=== PATIENT | female | born 1975 | race Caucasian/White ===

== ENCOUNTER 2017-08-30 13:17 | Emergency (ER) | payer OTHER ==
[2017-08-30] MEDS ORDERED: ONDANSETRON 4 MG/2 ML VIAL IVP STA ×2 (13:42→16:22)
[2017-08-30] MEDS ORDERED: SODIUM CHLORIDE 0.9% 1,000 ML IV STA (13:42)
--- NOTE | 2017-08-30 13:49 | ED ---
Nausea/Vomiting/Diarrhea HPI - General Chief complaint: Nausea/Vomiting/Diarrhea Stated complaint: vomiting Time Seen by Provider: 08/30/17 13:35 Source: patient Mode of arrival: wheelchair Limitations: no limitations - History of Present Illness Initial comments: Patient presents with sudden onset of vomiting for the past 2 hours. Patient denies any recent illness or triggers for vomiting. Denies suspicious food intake. Patient states she has not eaten any food today. Patient states she had a similar episode approximately 6 years ago when she found out she was . Patient states she is currently on her period, which has been cloth bleaching range tender than normal. Patient admits to cramping epigastric pain. Patient denies any pain in the lower abdomen or pelvis. Patient denies diarrhea constipation. Patient denies urinary symptoms. Patient denies vaginal discharge. Denies fevers, chills. Patient states since vomiting started she has felt a "tightening" sensation in the muscles of her legs and arms. MD complaint: nausea, vomiting, abdominal pain Onset/Timin -: hour(s) Associated Abdominal Pain: Yes Location: epigastric Radiation: none Severity scale (1-10): 3 Quality: cramping - Related Data Home Medications Medication Instructions Recorded Confirmed Sertraline [Zoloft] 50 mg PO DAILY 09/29/15 08/30/17 cloNIDine HCL [Catapres] 0.2 mg PO DAILY 09/29/15 08/30/17 Buprenorphine HCl/Naloxone HCl 1 film SUBLINGUAL BID 08/30/17 08/30/17 [Suboxone 2 mg-0.5 mg Sl Film] Ferrous Sulfate [Feosol] 325 mg PO DAILY 08/30/17 08/30/17 Multivitamins, Thera [Multivitamin 1 tab PO DAILY 08/30/17 08/30/17 (formulary)] Previous Rx's Medication Instructions Recorded Ondansetron Odt [Zofran Odt] 4 mg PO Q8HR PRN #10 tab 08/30/17 Allergies Allergy/AdvReac Type Severity Reaction Status Date / Time sulfamethoxazole Allergy Unknown Verified 08/30/17 14:02 [From Bactrim] trimethoprim [From Bactrim] Allergy Unknown Verified 08/30/17 14:02 Review of Systems ROS Statement: Those systems with pertinent positive or pertinent negative responses have been documented in the HPI. ROS Other: All systems not noted in ROS Statement are negative. Constitutional: Denies: fever, chills, weakness Eyes: Denies: vision change ENT: Denies: throat pain, congestion Respiratory: Denies: cough Cardiovascular: Denies: chest pain Endocrine: Reports: fatigue Gastrointestinal: Reports: abdominal pain, nausea, vomiting. Denies: diarrhea, constipation, hematemesis, melena, hematochezia Genitourinary: Denies: urgency, dysuria, frequency, hematuria Musculoskeletal: Denies: back pain Skin: Denies: rash, change in color Neurological: Denies: headache, weakness, numbness, paresthesias, vertigo Past Medical History Past Medical History: No Reported History History of Any Multi-Drug Resistant Organisms: MRSA Date of last positivie culture/infection: 01/18/2012 MDRO Source:: buttocks Past Surgical History: No Surgical Hx Reported Past Psychological History: Depression Smoking Status: Never smoker Past Alcohol Use History: None Reported Past Drug Use History: None Reported General Exam - General Exam Comments Initial Comments: Laying on left side on bed, retching without any vomiting. Appears in moderate distress. Limitations: no limitations General appearance: alert, anxious Head exam: Present: atraumatic, normocephalic Eye exam: Present: normal appearance, PERRL ENT exam: Present: normal oropharynx, mucous membranes moist Respiratory exam: Present: normal lung sounds bilaterally. Absent: respiratory distress, wheezes, rales, stridor Cardiovascular Exam: Present: regular rate, normal rhythm GI/Abdominal exam: Present: soft, other (Abdomen is soft nontender nondistended) . Absent: distended, tenderness, guarding, rebound, rigid Extremities exam: Present: normal inspection Neurological exam: Present: alert, oriented X3 Psychiatric exam: Present: anxious Skin exam: Present: warm, dry, intact, normal color. Absent: rash Course Vital Signs 08/30/17 08/30/17 08/30/17 13:27 17:07 18:59 Temperature 97.0 F L 98.9 F Pulse Rate 70 68 82 Respiratory 18 18 16 Rate Blood Pressure 156/86 164/85 139/73 O2 Sat by Pulse 99 100 97 Oximetry Medical Decision Making - Medical Decision Making Patient only pain complaint is mild cramping epigastric pain, abdomen is nontender. Patient admits to being on her period, however denies lower abdominal pain or abdominal cramping. We'll check urine test. IV fluids and antiemetics ordered. test negative. Patient states continued nausea after first dose of medications, Reglan and Benadryl given. Ultrasound of the gallbladder and pelvis negative. Patient states she still has pain, morphine given. Computed tomography scan ordered. No acute process on computed tomography scan. Patient reevaluated, updated with poor results. Patient sitting up on the bed smiling. No acute distress. States all symptoms resolved at this time. States she is feeling hungry and wanted to go home to eat. Sitting up on bed playing with her son. Patient well appearing. We'll discharge home. Patient agrees to follow up primary care physician. Return to ER for new or worsening symptoms. Patient understands and agrees. Prescription Zofran given. - Lab Data Result diagrams: 08/30/17 13:47 08/30/17 13:47 Lab Results 08/30/17 08/30/17 08/30/17 Range/Units 13:47 13:47 13:55 WBC 15.0 H (3.8-10.6) k/uL RBC 5.53 H (3.80-5.40) m/uL Hgb 16.6 H (11.4-16.0) gm/dL Hct 50.5 H (34.0-46.0) % MCV 91.4 (80.0-100.0) fL MCH 30.0 (25.0-35.0) pg MCHC 32.8 (31.0-37.0) g/dL RDW 12.1 (11.5-15.5) % Plt Count 354 (150-450) k/uL Neutrophils % 87 % Lymphocytes % 8 % Monocytes % 4 % Eosinophils % 0 % Basophils % 0 % Neutrophils # 13.1 H (1.3-7.7) k/uL Lymphocytes # 1.3 (1.0-4.8) k/uL Monocytes # 0.5 (0-1.0) k/uL Eosinophils # 0.0 (0-0.7) k/uL Basophils # 0.0 (0-0.2) k/uL Sodium 144 (137-145) mmol/L Potassium 4.2 (3.5-5.1) mmol/L Chloride 106 (98-107) mmol/L Carbon Dioxide 25 (22-30) mmol/L Anion Gap 13 mmol/L BUN 10 (7-17) mg/dL Creatinine 0.60 (0.52-1.04) mg/dL Est GFR (MDRD) Af Amer >60 (>60 ml/min/1.73 sqM) Est GFR (MDRD) Non-Af >60 (>60 ml/min/1.73 sqM) Glucose 161 H (74-99) mg/dL Calcium 9.8 (8.4-10.2) mg/dL Total Bilirubin 0.5 (0.2-1.3) mg/dL Conjugated Bilirubin 0.0 (0.0-0.3) mg/dL Unconjugated Bilirubin 0.2 (0.0-1.1) mg/dL Delta Bilirubin 0.3 H (0.0-0.2) mg/dL AST 22 (14-36) U/L ALT 30 (9-52) U/L Alkaline Phosphatase 57 (38-126) U/L Total Protein 6.9 (6.3-8.2) g/dL Albumin 4.3 (3.5-5.0) g/dL Lipase 79 (23-300) U/L Urine Color Yellow Urine Appearance Clear (Clear) Urine pH 8.5 H (5.0-8.0) Ur Specific Frost 1.012 (1.001-1.035) Urine Protein 1+ H (Negative) Urine Glucose (UA) Negative (Negative) Urine Ketones 2+ H (Negative) Urine Blood Moderate H (Negative) Urine Nitrite Negative (Negative) Urine Bilirubin Negative (Negative) Urine Urobilinogen <2.0 (<2.0) mg/dL Ur Leukocyte Esterase Small H (Negative) Urine RBC 167 H (0-5) /hpf Urine WBC 5 (0-5) /hpf Ur Squamous Epith Cells 2 (0-4) /hpf Urine Mucus Rare H (None) /hpf Urine HCG, Qual (Not Detectd) 08/30/17 Range/Units 13:55 WBC (3.8-10.6) k/uL RBC (3.80-5.40) m/uL Hgb (11.4-16.0) gm/dL Hct (34.0-46.0) % MCV (80.0-100.0) fL MCH (25.0-35.0) pg MCHC (31.0-37.0) g/dL RDW (11.5-15.5) % Plt Count (150-450) k/uL Neutrophils % % Lymphocytes % % Monocytes % % Eosinophils % % Basophils % % Neutrophils # (1.3-7.7) k/uL Lymphocytes # (1.0-4.8) k/uL Monocytes # (0-1.0) k/uL Eosinophils # (0-0.7) k/uL Basophils # (0-0.2) k/uL Sodium (137-145) mmol/L Potassium (3.5-5.1) mmol/L Chloride (98-107) mmol/L Carbon Dioxide (22-30) mmol/L Anion Gap mmol/L BUN (7-17) mg/dL Creatinine (0.52-1.04) mg/dL Est GFR (MDRD) Af Amer (>60 ml/min/1.73 sqM) Est GFR (MDRD) Non-Af (>60 ml/min/1.73 sqM) Glucose (74-99) mg/dL Calcium (8.4-10.2) mg/dL Total Bilirubin (0.2-1.3) mg/dL Conjugated Bilirubin (0.0-0.3) mg/dL Unconjugated Bilirubin (0.0-1.1) mg/dL Delta Bilirubin (0.0-0.2) mg/dL AST (14-36) U/L ALT (9-52) U/L Alkaline Phosphatase (38-126) U/L Total Protein (6.3-8.2) g/dL Albumin (3.5-5.0) g/dL Lipase (23-300) U/L Urine Color Urine Appearance (Clear) Urine pH (5.0-8.0) Ur Specific Frost (1.001-1.035) Urine Protein (Negative) Urine Glucose (UA) (Negative) Urine Ketones (Negative) Urine Blood (Negative) Urine Nitrite (Negative) Urine Bilirubin (Negative) Urine Urobilinogen (<2.0) mg/dL Ur Leukocyte Esterase (Negative) Urine RBC (0-5) /hpf Urine WBC (0-5) /hpf Ur Squamous Epith Cells (0-4) /hpf Urine Mucus (None) /hpf Urine HCG, Qual Not Detected (Not Detectd) Disposition Clinical Impression: Nausea & vomiting, Abdominal pain Disposition: HOME SELF-CARE Condition: Good Instructions: Abdominal Pain (ED), Acute Nausea and Vomiting (ED) Additional Instructions: Follow-up to her primary care physician in one to 2 days. Return ER if new or worsening symptoms. Including inability to tolerate oral intake. Prescriptions: Ondansetron Odt [Zofran Odt] 4 mg PO Q8HR PRN #10 tab PRN Reason: Nausea Referrals: Patel Dee DO [Primary Care Provider] - 1-2 days
[2017-08-30 14:09] LABS: Mucus,Urine Rare /hpf; RBC,Urine 167 /hpf (0-5); Squamous Epithelial Cell,Urine 2 /hpf (0-4); WBC,Urine 5 /hpf (0-5)
[2017-08-30 14:13] LABS: Appearance,Urine Clear (Clear); Bilirubin,Urine Negative (Negative); Blood,Urine Moderate (Negative); Color,Urine Yellow; Glucose,Urine (UA) Negative (Negative); Leukocyte Esterase,Urine Small (Negative); Nitrite,Urine Negative (Negative); PH, Urine 8.5 (5.0-8.0); Protein,Urine 1+ (Negative); Specific Gravity,Urine 1.012 (1.001-1.035); Urobilinogen,Urine <2.0 mg/dL (<2.0)
[2017-08-30 14:13] LABS: ALT 30 U/L (9-52); AST 22 U/L (14-36); Albumin 4.3 g/dL (3.5-5.0); Alkaline Phosphatase 57 U/L (38-126); Anion Gap 13 mmol/L; Bilirubin, Delta 0.3 mg/dL (0.0-0.2); Bilirubin,Unconjugated 0.2 mg/dL (0.0-1.1); Blood Urea Nitrogen 10 mg/dL (7-17); Calcium 9.8 mg/dL (8.4-10.2); Carbon Dioxide 25 mmol/L (22-30); Chloride 106 mmol/L (98-107); Glucose 161 mg/dL (74-99); Lipase 79 U/L (23-300); Potassium 4.2 mmol/L (3.5-5.1); Sodium 144 mmol/L (137-145); Total Bilirubin 0.5 mg/dL (0.2-1.3); Total Protein 6.9 g/dL (6.3-8.2)
[2017-08-30 14:19] LABS: Ketones,Urine 2+ (Negative)
[2017-08-30] MEDS ORDERED: diphenhydrAMINE 50 MG/ML 1 ML VIAL IVP STA (14:42)
[2017-08-30] MEDS ORDERED: METOCLOPRAMIDE 5 MG/ML 2 ML VIAL IVP STA (14:42)
[2017-08-30] MEDS ORDERED: KETOROLAC 30 MG/ML 1 ML VIAL IVP STA (14:49)
[2017-08-30 15:05] LABS: Basophils % (A) 0 %; Eosinophils % (A) 0 %; HCT 50.5 % (34.0-46.0); HGB 16.6 gm/dL (11.4-16.0); Lymphocytes # (A) 1.3 k/uL (1.0-4.8); Lymphocytes % (A) 8 %; MCHC 32.8 g/dL (31.0-37.0); MCV 91.4 fL (80.0-100.0); Monocytes # (A) 0.5 k/uL (0-1.0); Monocytes % (A) 4 %; Neutrophils # (A) 13.1 k/uL (1.3-7.7); Neutrophils % (A) 87 %; Platelet Count 354 k/uL (150-450); RBC 5.53 m/uL (3.80-5.40); RDW 12.1 % (11.5-15.5)
--- NOTE | 2017-08-30 16:02 | US ---
EXAMINATION TYPE: US abdomen limited DATE OF EXAM: 08/30/2017 COMPARISON: NONE CLINICAL HISTORY: Pain. generalized abdominal pain, vomiting EXAM MEASUREMENTS: Liver Length: 14.2 cm Gallbladder Wall: 0.3 cm CBD: 0.3 cm Right Kidney: 9.4 x 4.2 x 5.6 cm Pancreas: visualized portions wnl Liver: wnl Gallbladder: No stones seen Evidence for sonographic Tuttle's sign: No CBD: wnl Right Kidney: No hydronephrosis or masses seen IMPRESSION: 1. Unremarkable abdomen ultrasound
--- NOTE | 2017-08-30 16:04 | US ---
EXAMINATION TYPE: US transvaginal DATE OF EXAM: 08/30/2017 COMPARISON: NONE CLINICAL HISTORY: cramping lower abdominal pain. TECHNIQUE: Transvaginal (TV) Date of LMP: 08/28/2017 EXAM MEASUREMENTS: Uterus: 8.2 x 3.6 x 4.6 cm Endometrial Stripe: 0.6 cm Right Ovary: 3.1 x 1.6 x 3.1 cm Left Ovary: 3.8 x 1.9 x 3.4 cm 1. Uterus: Anteverted wnl 2. Endometrium: wnl 3. Right Ovary: wnl 4. Left Ovary: wnl Spectral, color and waveform doppler imaging shows good arterial and venous flow within the ovaries ; there is no evidence for ovarian torsion. 5. Bilateral Adnexa: wnl 6. Posterior cul-de-sac: no free fluid IMPRESSION: 1. Unremarkable transvaginal ultrasound.
[2017-08-30] MEDS ORDERED: MORPHINE SULFATE 4 MG/ML SYRINGE IVP ONE (16:22)
[2017-08-30] MEDS ORDERED: RX INFO: IV CONTRAST WAS GIVEN 1 EACH MISC MISCELLANE PRN (16:24)
[2017-08-30 17:08] VITALS: TEMP 98.9
--- NOTE | 2017-08-30 18:55 | CT ---
EXAMINATION TYPE: CT abdomen pelvis w con DATE OF EXAM: 08/30/2017 COMPARISON: NONE INDICATION: Vomiting and lower pelvic pain. DLP: 665.3 mGycm, Automated exposure control for dose reduction was used. CONTRAST: 100 mL of Omnipaque 300. Study performed without Oral Contrast TECHNIQUE: Axial images were obtained from above the diaphragm to the pubic rami in the axial plane a t 5 mm thick sections. Reconstructed images are reviewed on the computer in the coronal plane. FINDINGS: Limited CT sections are obtained the lung bases. The lung bases are clear. CT ABDOMEN: Liver: Normal Spleen: Normal Pancreas: Normal Adrenal glands: The adrenal glands are normal. Gallbladder: Normal Kidneys: No masses are evident. No hydronephrosis is present. No cysts are present. Delayed images were obtained through the kidneys, which remain unremarkable. Aorta: Normal Inferior vena cava: Normal. CT PELVIS: Loops of bowel within the abdomen and pelvis are normal. Study is without oral contrast limiting bowel loop evaluation. Appendix: Not identified. The terminal ileum appears normal. No suspicious inflammatory changes or di lated tubular structures are evident. Clinical management of any suspected appendicitis will be requi red. Urinary bladder: Normal. Genitourinary structures: Uterus is normal. Adnexal regions are unremarkable. Osseous structures: No suspicious lytic or sclerotic lesions. IMPRESSIONS: 1. No suspicious acute changes.
[2017-08-30 19:00] VITALS: BP 139/73; PULSE 82; RESP 16
== END 2017-08-30 19:20 | disposition home or self-care (01) ==
LOC: EC 13:17
DX: R11.2 Nausea with vomiting, unspecified (principal); R10.13 Epigastric pain; F41.9 Anxiety disorder, unspecified; Z79.899 Other long term (current) drug therapy; Z88.1 Allergy status to other antibiotic agents; Z86.14 Personal history of Methicillin resistant Staphylococcus aureus infection
CPT/HCPCS: 36415; 80048; 80076; 83690; 85025; 81001; 81025; 93975; 76705; 76830; 74177; 99284; 96374; 96375 ×4; 96376; 96361; J2270; J1200; J2765; J2405; J1885; Q9967

== ENCOUNTER → 2018-06-09 | Outpatient (CLI) | payer OTHER ==
--- NOTE | 2018-06-09 15:47 | XR ---
EXAMINATION TYPE: XR chest 2V DATE OF EXAM: 06/09/2018 COMPARISON: None HISTORY: 42-year-old female with chest pain TECHNIQUE: Frontal and lateral views FINDINGS: The cardiomediastinal silhouette, aorta, and pulmonary vasculature are within normal limits. Lungs an d pleural spaces are clear. IMPRESSION: No acute cardiopulmonary process.
--- NOTE | 2018-06-14 10:48 | MM ---
Reason for exam: screening (asymptomatic). Last mammogram was performed 20 years and 4 months ago. History: Patient had first child at age 38. Physical Findings: A clinical breast exam by your physician is recommended on an annual basis and results should be correlated with mammographic findings. MG Screening Mammo w CAD Bilateral CC and MLO view(s) were taken. No prior studies available for comparison. There are scattered fibroglandular densities. Left upper outer quadrant focal asymmetry with no priors for comparison. ASSESSMENT: Incomplete: need additional imaging evaluation, BI-RAD 0 RECOMMENDATION: Ultrasound of the left breast. [facility] will attempt to contact patient to return for ultrasound.
== END | disposition home or self-care (01) ==
LOC: RADMAMWWP 09:34
PROVIDERS: ATTEND Internal Medicine
DX: Z12.31 Encounter for screening mammogram for malignant neoplasm of breast (principal); R92.8 Other abnormal and inconclusive findings on diagnostic imaging of breast; R07.9 Chest pain, unspecified
CPT/HCPCS: 71046; 77067

== ENCOUNTER → 2018-06-18 | Outpatient (CLI) | payer OTHER ==
--- NOTE | 2018-06-21 08:10 | USB ---
Reason for exam: clinical finding. History: Patient had first child at age 38. Indicated problem(s): palpable abnormality and lump or thickening in the left breast. Physical Findings: Nurse Summary: 1cm nodule at 2 o'clock (nurse andrew). US Breast Workup Limited LT Left limited breast ultrasound including focal area of concern, retroareolar and axilla demonstrates a 2.1 x 1.5 x 0.6cm oval, benign node at the axilla. These results were verbally communicated with the patient and result sheet given to the patient on 06/18/18. ASSESSMENT: Benign, BI-RAD 2 RECOMMENDATION: Return to routine screening mammogram schedule for both breasts.
== END ==
LOC: RADUSWWP 15:42
PROVIDERS: ATTEND Internal Medicine
DX: R92.8 Other abnormal and inconclusive findings on diagnostic imaging of breast (principal)

== ENCOUNTER 2019-01-21 12:40 | Emergency (ER) | payer OTHER ==
[2019-01-21 13:13] VITALS: BP 132/74; PULSE 84; RESP 16; TEMP 98.6
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
== END 2019-01-21 13:50 | disposition home or self-care (01) ==
LOC: EC 12:40
DX: T24.212A Burn of second degree of left thigh, initial encounter (principal); T24.211A Burn of second degree of right thigh, initial encounter; T31.0 Burns involving less than 10% of body surface; F32.9 Major depressive disorder, single episode, unspecified; Z79.899 Other long term (current) drug therapy; Z88.1 Allergy status to other antibiotic agents; Z88.2 Allergy status to sulfonamides; X11.8XXA Contact with other hot tap-water, initial encounter
CPT/HCPCS: 99284

== ENCOUNTER 2019-11-03 18:44 | Emergency (ER) | payer OTHER ==
--- NOTE | 2019-11-03 19:02 | ED ---
General Adult HPI - General Source: patient, EMS, RN notes reviewed <Shaun Gomez - Last Filed: 11/03/19 23:39> <Mabel Holliday - Last Filed: 11/05/19 13:50> - General Stated complaint: overdose Time Seen by Provider: 11/03/19 18:48 - History of Present Illness Initial comments: 43-year-old female presents to the emergency department for a chief complaint of overdose. Patient states that she was doing heroin when she apparently overdosed. EMS was called to the scene and administered narcan. Patient states she feels fine. Patient states this was accidental and she was not trying to hurt herself. Patient states she wants to go home and she wants her sister to pick her up.Patient has no other complaints at this time including shortness of breath, chest pain, abdominal pain, nausea or vomiting, headache, or visual changes. (Shaun Gomez) - Related Data Home Medications Medication Instructions Recorded Confirmed Sertraline [Zoloft] 50 mg PO DAILY 09/29/15 08/30/17 cloNIDine HCL [Catapres] 0.2 mg PO DAILY 09/29/15 08/30/17 Buprenorphine HCl/Naloxone HCl 1 film SUBLINGUAL BID 08/30/17 08/30/17 [Suboxone 2 mg-0.5 mg Sl Film] Ferrous Sulfate [Feosol] 325 mg PO DAILY 08/30/17 08/30/17 Multivitamins, Thera [Multivitamin 1 tab PO DAILY 08/30/17 08/30/17 (formulary)] Previous Rx's Medication Instructions Recorded Ondansetron Odt [Zofran Odt] 4 mg PO Q8HR PRN #10 tab 08/30/17 Allergies Allergy/AdvReac Type Severity Reaction Status Date / Time sulfamethoxazole Allergy Unknown Verified 11/03/19 19:07 [From Bactrim] trimethoprim [From Bactrim] Allergy Unknown Verified 11/03/19 19:07 Review of Systems ROS Other: All systems not noted in ROS Statement are negative. <Shaun Gomez - Last Filed: 11/03/19 23:39> ROS Other: All systems not noted in ROS Statement are negative. <Mabel Holliday - Last Filed: 11/05/19 13:50> ROS Statement: Those systems with pertinent positive or pertinent negative responses have been documented in the HPI. Past Medical History Past Medical History: No Reported History Additional Past Medical History / Comment(s): carpal tunnel History of Any Multi-Drug Resistant Organisms: MRSA Date of last positivie culture/infection: 01/18/2012 MDRO Source:: buttocks Past Surgical History: No Surgical Hx Reported Past Psychological History: Depression Smoking Status: Never smoker Past Alcohol Use History: Occasional Past Drug Use History: Marijuana <Shaun Gomez P - Last Filed: 11/03/19 23:39> General Exam General appearance: alert, in no apparent distress, other (Tearful) Head exam: Present: atraumatic, normocephalic, normal inspection Eye exam: Present: normal appearance, PERRL, EOMI. Absent: scleral icterus, conjunctival injection, periorbital swelling ENT exam: Present: normal exam, mucous membranes moist Neck exam: Present: normal inspection, full ROM. Absent: tenderness, meningismus, lymphadenopathy Respiratory exam: Present: normal lung sounds bilaterally. Absent: respiratory distress, wheezes, rales, rhonchi, stridor Cardiovascular Exam: Present: regular rate, normal rhythm, normal heart sounds. Absent: systolic murmur, diastolic murmur, rubs, gallop, clicks GI/Abdominal exam: Present: soft, normal bowel sounds. Absent: distended, tenderness, guarding, rebound, rigid Neurological exam: Present: alert Psychiatric exam: Present: normal affect, normal mood <Shaun Gomez P - Last Filed: 11/03/19 23:39> Course Vital Signs 11/03/19 11/03/19 11/03/19 19:08 19:12 20:15 Temperature 98.6 F 98.2 F Pulse Rate 107 H 97 Respiratory 18 18 Rate Blood Pressure 121/65 101/43 O2 Sat by Pulse 90 L 94 L 98 Oximetry 11/03/19 11/03/19 11/03/19 20:20 21:47 22:26 Temperature 98.0 F Pulse Rate 99 98 Respiratory 18 18 18 Rate Blood Pressure 95/82 112/52 O2 Sat by Pulse 96 97 Oximetry Medical Decision Making <Shaun Gomez P - Last Filed: 11/03/19 23:39> <Mabel Holliday - Last Filed: 11/05/19 13:50> - Medical Decision Making Patient was monitored for several hours in the emergency department. She did start to become drowsy after about an hour and another dose of Narcan was administered IV. Afterwards patient was again monitored for about 2 hours. She remained alert and oriented. Vitals were stable. Patient was requesting discharge. Her sister picked her up. She will return for any worsening symptoms. (Shaun Gomez) I was available for consultation in the emergency department. The history and physical exam were done by the midlevel provider. I was consulted for this patients care. I reviewed the case with the midlevel provider and based on their presentation of the patient, I agree with the assessment, medical decision making and plan of care as documented. Chart was dictated using [employer] dictation software. Attempts were made to correct any dictation errors however some typographical errors may persist. Patient was seen during a national state of emergency due to the Covid-19 pandemic. (Mabel Holliday) Disposition Is patient prescribed a controlled substance at d/c from ED?: No Time of Disposition: 22:18 <Shaun Gomez - Last Filed: 11/03/19 23:39> <Mabel Holliday - Last Filed: 11/05/19 13:50> Clinical Impression: Drug overdose Disposition: HOME SELF-CARE Condition: Good Instructions (If sedation given, give patient instructions): Adult Overdose (ED) Additional Instructions: Please follow up with primary care in 1-2 days. Return to the emergency department for any worsening symptoms. Referrals: Alexander Noble Jr, [Primary Care Provider] - 1-2 days
[2019-11-03 19:12] VITALS: RESP 18
[2019-11-03] MEDS ORDERED: NALOXONE 0.4 MG/ML 1 ML VIAL IV STA (20:05)
[2019-11-03 21:49] VITALS: TEMP 98
[2019-11-03 22:28] VITALS: BP 112/52; PULSE 98
== END 2019-11-03 22:38 | disposition home or self-care (01) ==
LOC: EC 18:44
DX: T40.1X1A Poisoning by heroin, accidental (unintentional), initial encounter (principal); F32.9 Major depressive disorder, single episode, unspecified; Z79.899 Other long term (current) drug therapy; Z88.2 Allergy status to sulfonamides; Z88.1 Allergy status to other antibiotic agents; Z86.14 Personal history of Methicillin resistant Staphylococcus aureus infection
CPT/HCPCS: 99284; 96374; J2310

== ENCOUNTER → 2022-12-05 | Outpatient (CLI) | payer OTHER ==
--- NOTE | 2022-12-08 19:02 | MM ---
Reason for Exam: Screening (asymptomatic). Last mammogram was performed 4 year(s) and 6 month(s) ago. Patient History: Menarche at age 15. First Full-Term at age 38. Late child-bearing (after 30). Last menstrual period: 11/21/2022 Risk Values: Vivi 5 year model risk: 1.1%. NCI Lifetime model risk: 13.1%. Prior Study Comparison: 02/21/1998 Bilateral Diagnostic Mammogram, [facility]. 06/09/2018 Bilateral Screening Mammogram, [facility]. Tissue Density: There are scattered fibroglandular densities. Findings: Analyzed By CAD. There is no suspicious group of microcalcifications or new suspicious mass in either breast. Overall Assessment: Negative, BI-RAD 1 Management: Screening Mammogram of both breasts in 1 year. . Patient should continue monthly self-breast exams. A clinical breast exam by your physician is recommended on an annual basis. This exam should not preclude additional follow-up of suspicious palpable abnormalities. Note on Vivi scores and lifetime risk: 1. A Vivi score greater than 3% is considered moderate risk. If this is the case, consider specialist referral to assess eligibility for a risk reducing agent. 2. If overall lifetime risk for the development of breast cancer is 20% or higher, the patient may qualify for future screening with alternating mammogram and breast MRI. Electronically signed and approved by: Brie tSanton M.D. Radiologist
== END | disposition home or self-care (01) ==
LOC: RADMAMWWP 17:02
PROVIDERS: ATTEND Family Medicine
DX: Z12.31 Encounter for screening mammogram for malignant neoplasm of breast (principal)
CPT/HCPCS: 77067

== ENCOUNTER → 2023-12-18 | Outpatient (CLI) | payer OTHER ==
--- NOTE | 2023-12-18 17:28 | MM ---
Reason for Exam: Screening (asymptomatic). Last screening mammogram was performed 12 month(s) ago. Patient History: Menarche at age 15. First Full-Term at age 38. Late child-bearing (after 30). Risk Values: Vivi 5 year model risk: 1.1%. NCI Lifetime model risk: 13.0%. Prior Study Comparison: 02/21/1998 Bilateral Diagnostic Mammogram, [facility]. 06/09/2018 Bilateral Screening Mammogram, [facility]. 12/05/2022 Bilateral MG screening mammo w CAD, [facility]. Tissue Density: There are scattered areas of fibroglandular density. Findings: Analyzed By CAD. The pattern is symmetrical. No significant interval change No suspicious groups of microcalcifications, spiculated or lobular masses, architectural distortion or other secondary signs of malignancy are mammographically apparent. Overall Assessment: Negative, BI-RAD 1 Management: Screening Mammogram of both breasts in 1 year. A negative mammogram report should not preclude additional follow up of suspicious palpable abnormalities. Patient should continue monthly self breast exam. A clinical breast exam by your physician is recommended on an annual basis and results should be correlated with mammographic findings. Note on Vivi scores and lifetime risk: 1. A Vivi score greater than 3% is considered moderate risk. If this is the case, consider specialist referral to assess eligibility for a risk reducing agent. 2. If overall lifetime risk for the development of breast cancer is 20% or higher, the patient may qualify for future screening with alternating mammogram and breast MRI. Electronically signed and approved by: Neto Black D.O. Radiologis
== END | disposition home or self-care (01) ==
LOC: RADMAMWWP 13:07
PROVIDERS: ATTEND Family Medicine
DX: Z12.31 Encounter for screening mammogram for malignant neoplasm of breast (principal)
CPT/HCPCS: 77067